=== PATIENT | female | born 2005 | race Caucasian/White ===

== ENCOUNTER 2025-04-06 15:59 | Outpatient (AMB) | payer BC, SELFPAY ==
[2025-04-06 16:05] VITALS: BP 112/76; PULSE 68; O2SAT 98; BMI 40.2
--- NOTE | 2025-04-06 16:05 | A.OFFVIS_ITS ---
Vital Signs 04/06/25 16:05 Height 5 ft 3 in Weight 227 lb 1.218 oz BMI 40.2 BP 112/76 Pulse 68 Pulse Source Pulse Oximeter Pulse Oximetry (%) 98 Oxygen Delivery Method Room Air Intake Visit Reasons: Weight gain Intake Note: New patient externally referred by PCP for Obesity. Excel Expert Required: No Accompanied by: Self / Same As Patient Allergies buspirone Allergy (Mild, Verified 04/06/25 16:07) Weakness Medication List - Last Reconciled 04/06/25 by Benyn Iglesias MD cetirizine 10 mg PO DAILY dextroamphetamine-amphetamine 10 mg PO dextroamphetamine-amphetamine 20 mg ER PO famotidine 20 mg PO DAILY norethindrone-e.estradiol-iron 1 mg-20 mcg (21)/75 mg (7) (06/15 (28)) tabs PO sertraline 50 mg PO DAILY HPI Comments Details: 19-year-old female sent to endocrinology for abnormal weight gain. Weight gain started 09/2023 til 07/2024 . Weight gain of 30-40 lb. wt is now stable Had extensive hormonal workup which included normal thyroid levels, slightly elevated testosterone, normal a.m. cortisol levels. Denies specific symptoms of Sruthi syndrome. No history of hypothyroidism.Some hair growth on face . Zoloft added 01/2025 . No dx of sleep apnea. LMP 1 mo ago. Menses nl on BCP The patient is a 19-year-old female presenting with unexplained weight gain. The weight gain began between September 2023 and July of the following year, totaling approximately 30 to 40 pounds without any changes in lifestyle or diet. Despite extensive workup, the cause remains unidentified, and the weight has stabilized but not decreased. The patient has a history of Polycystic Ovary Syndrome (PCOS), diagnosed at age 13-14, with symptoms including hair growth and stretch zhou. She is currently on control, which has not significantly impacted her symptoms. There is a family history of PCOS, and the patient has been on various medications, including Zoloft and Adderall, with no recent changes correlating with the weight gain. 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 She denies any diagnosis of sleep apnea following a 24-hour sleep study. The patient also has long COVID syndrome, contributing to short-term memory loss and fatigue. A family history of hypothyroidism is noted, although the patient's thyroid levels have been checked and are normal. The possibility of Sruthi's syndrome was considered due to symptoms and family history, but initial cortisol levels were normal. A 24-hour urine cortisol test is planned to further investigate this possibility. - Zoloft: No significant weight-related effects noted - Adderall: Used for idiopathic hypersomnia, initially improved fatigue - control: No significant impact on PCOS symptoms - [facility] Medical History Weight gain Surgical History Hx of wisdom tooth extraction Hx of arthroscopy of left knee History of tonsillectomy and adenoidectomy Family History Mother History of hysterectomy Family history of thyroid problem Tachycardia History of TIA (transient ischemic attack) IBS (irritable bowel syndrome) Pernicious anemia Depression Asthma Arthritis Fibromyalgia Father History of hypertension Hyperlipidemia Stroke Brain aneurysm Rheumatoid arthritis Social History Alcohol intake: current Alcohol intake frequency: holidays/special occasions only Patient Tobacco Use Status: Never used Tobacco Physical Exam Vital Signs: Last Vital Signs Pulse 68 04/06/25 16:05 BP 112/76 04/06/25 16:05 Pulse Ox 98 04/06/25 16:05 Oxygen Delivery Method Room Air 04/06/25 16:05 BMI result Body Mass Index 40.2 Const Other: Absence of cushingoid features. Thyroid gland is normal size weighs about 15 g. There are no thyroid nodules palpated Assessment & Plan Assessment & Plan (1) Weight gain: Code(s): R63.5 - Abnormal weight gain Category: Medical Plan: Is a 19-year-old white female sent to endocrinology for abnormal weight gain. Doubt endocrine etiology Plan is to check 24 hour urine for free cortisol and creatinine although t doubt [place] syndrome. We will also check test. Assuming above is normal, refer the patient to cooler room worker here. We also had extensive discussion regarding the use of G LP 1/GI P and decided to prescribe Mounjaro 2.5 mg Q weekly. Went over side effects of Mounjaro including but not limited to nausea, vomiting rare risk of pancreatitis. Patient was advised to keep her appointment with Gastroenterology During the consultation, I discussed the complexity of weight management, particularly in the context of PCOS and potential Sruthi's syndrome. We reviewed the role of the hypothalamus and hormones in weight regulation. I explained the potential use of GLP-1 medications for weight management, noting the challenges with insurance coverage. We also discussed the importance of ruling out Sruthi's syndrome with a 24-hour urine cortisol test. I advised the patient to consider a structured weight loss program and follow up with a cooler room worker. We also reviewed the potential impact of medications on weight and the importance of monitoring symptoms of idiopathic hypersomnia and long COVID syndrome. - Follow up with a cooler room worker for a structured weight loss program. - Complete the 24-hour urine cortisol test as instructed. - Monitor symptoms of fatigue and memory loss, and report any changes. - Consider discussing GLP-1 medications with your primary care provider for weight management. . Orders: Orders Cortisol, Free 24Hr Urine Today R63.5 - Abnormal weight gain Creatinine, 24 Hr Group Today R63.5 - Abnormal weight gain HCG Quantitative Today R63.5 - Abnormal weight gain Referrals Nutrition/Dietitian Referral R63.5 - Abnormal weight gain Nutrition/Dietitian Referral R63.5 - Abnormal weight gain Medications: New Zepbound (tirzepatide (weight loss)) for 4 weeks 2.5 mg (0.5 mL) subcut QWEEK 2 mL 4RF NS Coding Level of Care Code New Pt Level 4 (94121) Diagnoses Weight gain R63.5
--- OUTSIDE RECORDS SUMMARY | 2025-04-06 17:20 | XMS_ITS | Data Portability ---
Author Organization [facility] Address [address] [place] [phone] Care Team Providers Care Layer Out Plate Glass Name Role Phone JOAO, EKTA Referring Provider [phone] Assessment Encounter Date Assessment Date Assessment LastModified by Organization Details LastModified Time 02/11/2023 02/11/2023 Orthotic Goals: YesProvide Support YesReduce Pain YesImprove Stability optimize patellofemoral biomechanics. YesPositioning Other (please specify): The patient will be seen on an as needed basis. Orthosis: is in stock and delivered today. [email or web address] Not available 02/11/2023 17:19:42 Plan of Treatment Reminders Order Date Submit Date Provider Last Modified By Organization Details Last Modified Time Details Appointments None record ed. Lab None record ed. Referral None record ed. Procedures None record ed. Surgeries None record ed. Imaging None record ed. Medication Orders None record ed. Patient TargetsNo targets recorded. Patient Instructions Encounter Date Encounter Id Patient Instructions Last Modified By Organization Details Last Modified Time 02/11/2023 [id number] Patient was provided with oral and written instructions regarding proper donning, doffing, wear, care and maintenance. Patient did demonstrate that they were able to properly don and doff the orthosis. Patient was provided with my card and instructed to call if any questions or problems arise. [email or web address] Not available 02/11/2023 17:02:45 Reason for Referral None Reported. Procedures Surgical History Date Name Laterality Status Provider Name and Address Organization Details Recorded Time 3 OTS Procedures completed Alice Jefferson [place] [address], [place], [phone], [facility] 02/11/2023 17:18:39 Imaging Results None recorded. Procedure Notes None recorded. Medical Equipment None Reported. Vitals None Recorded Social History None recorded. Functional Status None recorded. Mental Status None recorded. Family History Nothing Reported. Medical History No medical history recorded. Gynecological HistoryNo gynecological history recorded. Obstetrics History GPAL:G 0 P 0 0 0 0 Past Encounters Encounter ID Performer Location Encounter Start Date Encounter Closed Date Diagnosis/Indication Diagnosis SNOMED-CT Code Diagnosis ICD10 Code Diagnosis IMO Codes Diagnosis Note [id number] ELODIA Lopez [place] [address] [place] [address] 02/11/2023 15:11:25 02/13/2023 10:21:34 Patellar instability [id number] M25.362 Health Concerns Section Related Observation LastModified by Organization Detai ls LastModified Time None Recorded Concern Status LastModified by Organization Details LastModified Time None Recorded Advance Directives Directive None Recorded Payers Insurance Date Sequence Insurance Name Policy Number Policy Morse Covered Member ID Morse Member ID Guarantor Name 02/13/2023 1 [facility] [id number] Neeta Roberts [id number] [facility] Notes Date Note Type Note Provider Name and Address Organization Details Recorded Time 02/11/2023 text/html Patient Accompan ied ByReported by PatientAccompanied by:For patient accompanied, patient reportsby father. OTS Generic HPIReported by Patientongoing left patella instability, but current brace while itis a pull on style, the crescent pad does not make contact, and the alignment on hinges is poor. Patient RTO for evaluation for left hinged PTO. She had an airmesh breg PTO, but the fit has not been sufficient. Patient states device is about one year old. Alice Jefferson [facility] [address], [place], [address], [facility] 02/11/2023 17:21:07 OBGyn Episode No OBEpisode recorded.
--- OUTSIDE RECORDS SUMMARY | 2025-04-06 17:20 | XMS_ITS | Encounter Summary ---
Author Organization [facility] Address [address] [place] [phone] Phone Care Team Providers Care Abstracter Name Role Phone Liz Menchaca MD Primary Care Provider + [phone] Reason for Visit * Reason Comments Med Refill Encounter Details Date Type Department Care Team ([facility] st Contact Info) Description 12/01/2021 Refill [facility] [place] [address] [place] [id number] Liz Menchaca MD [address] [place] [address] Menstrual cramps Social History Tobacco Use Types Packs/Day Years Used Date Smoking Tobacco: Never Smokeless Tobacco: Never Alcohol Use Standard Drinks/Week Comments Never 0 (1 standard drink = 0.6 oz pur e alcohol) Hunger/Food Answer Date Recorded In the last 12 months, did y ou or your family ever eat less than you felt you should because there wasn't enough money for food? No 11/06/2018 Stable Housing Answer Date Recorded Are you worried that in the next 2 months you may not have stable housing? No 11/06/2018 Transportation Concerns Answer Date Rec orded In the last 12 months, have you or your family ever had to go without healthcare because you didn't have a way to get there? No 11/06/2018 Hazards in Home Answer Date Recorded Think about the place you li ve. Do you have problems with any of the following? Pests (mice or roaches), mold, no/not working smoke detectors, water leaks, no window guards. No 2018 Financing Utilities Answer Date Recorde d In the last 12 months, has t he electric, gas, oil, or water company threatened to shut off your services in your home? No 11/06/2018 Safety at Home Answer Date Recorded Are you or your family worried about feeling saf e in your home? No 11/06/2018 Outside Support Answer Date Recorded Do you feel that you need mo re support from other people or programs to help you care for yourself or your family? No 11/06/2018 Understanding Health Concerns Answer Da te Recorded Do you need help understandi ng your or your child's healthcare needs (diagnosis, medications, plan, etc.)? No 11/06/2018 Financing Health Concerns Answer Date R ecorded In the last 12 months, was t here a time when your child needed to see a doctor or get medications or supplies but could not because of cost? No 11/06/2018 Missing School or Work Answer Date Dylan rded Did you or your child miss s chool or work because of a health problem that could have been avoided? No 11/06/2018 Comments Unknown Sex and Gender Information Value Date Recorded Sex Assigned at Not on file Legal Sex Female 6:39 PM EDT Gender Identity Female 06/08/2021 12:58 PM EST Sexual Orientation Not on file documented as of this encounter Miscellaneous Notes * Telephone Encounter - Sheela Hahn RN - 12/22/2021 10:59 AM EDT Spoke with Jackie to see if she was requesting the refill of Naproxen. It was prescribed 11/08/21- 60 tabs for menstrual cramps. She has only used 2-3 pills. She does not need the refill yet. Advised that she call us when she does need the refill. Denied refill to pharmacy at this time. documented in this encounter Plan of Treatment Not on file documented as of this encounter Visit Diagnoses Diagnosis Menstrual cramps Dysmenorrhea documented in this encounter Care Teams Abstracter Relationship Specialty Start Date End Date Liz Menchaca MD [address] [place] [address] PCP - General 10/02/17 11/04/23 documented as of this encounter
--- OUTSIDE RECORDS SUMMARY | 2025-04-06 17:20 | XMS_ITS | Clinical Summary ---
Author Organization [facility] Address [address] [place] [phone] Phone Care Team Providers Care Filter Washer And Presser Name Role Phone Liz Menchaca MD Primary Care Provider Allergies Active Allergy Reactions Criticality Noted Date Comments Beeswax Hives High 08/09/2018 Draper Hives 10/02/2022 House Dust Mite 10/02/2022 Grass Pollen 10/02/2022 Other Hives 08/09/2018 Head and shoulder shampoo Pollen Extracts 10/02/2022 Medications cetirizine (ZYRTEC) 10 MG tablet Take 1 tablet by mouth every morning. 3 Active norethindrone-e thinyl estradiol (JUNEL FE ,) 1 mg-20 mcg (21)/75 mg (7) per tablet 2 Active acetaminophen (TYLENOL) 650 mg/20.3 mL Soln Take 20.3 mL (650 mg total) by mouth every 6 (six) hours as needed (mild throat pain after surgery). Ask for over the counter liquid or may swallow tablets if tolerated 3 Active sodium chloride (OCEAN) 0.65 % nasal spray 3 sprays per nostril 3 times a day. May start on 10/10/2022. Any over the counter brand 15 mL 12 3 Active Active Problems Problem Noted Date Diagnosed Date Chronic adenotonsillitis 10/09/2022 PONV (postoperative nausea and vomiting) 023 Long COVID Immunizations Immunization Administration Dates Next Due MMR 01/21/2009,03/20/2005 Tdap 05/03/2015 Varicella 01/21/2008,12/13/2004 Family History Medical History Relation Comments Anesthesia problems Mother Trouble yolanda ng up Relation Status Comments Mother Social History Tobacco Use Types Packs/Day Years Used Date Smoking Tobacco: Never Smokeless Tobacco: Never Alcohol Use Standard Drinks/Week Comments Never 0 (1 standard drink = 0.6 oz pur e alcohol) Education Answer Date Recorded Are you interested in more education? Not on kenji e 09/22/2022 Are you concerned about learning? Not on file 09/22/2022 No 09/22/2022 No 09/22/2022 Digital Access Answer Date Recorded No 10/16/2022 No 10/16/2022 Reliable internet access at home? Not on file 10/16/2022 Device with a working camera? Not on file Comments Unknown Sex and Gender Information Value Date Recorded Sex Assigned at Not on file Legal Sex Female 3:00 PM EDT Gender Identity Not on file Sexual Orientation Not on file Last Filed Vital Signs Vital Sign Reading Time Taken Comments Blood Pressure 122/79 10/09/2022 3:51 PM EDT Pulse 71 10/09/2022 3:51 PM EDT Temperature 36.6 C (97.9 F) 10/09/2022 11:37 AM EDT Respiratory Rate 18 10/09/2022 3:51 PM EDT Oxygen Saturation 97% 10/09/2022 3:51 PM EDT Inhaled Oxygen Concentration - - Weight - - Height - - Body Mass Index - - Plan of Treatment Health Maintenance Due Date Last Done Comments COMBINED DTaP,Tdap,Td (2 - Td or Tdap) 05/31/2015 05/03/2015 DEPRESSION SCREENING 2015 SMOKING Hx and SMOKELESS TOBACCO SCREENING 11/17/2016 HPV VACCINES (1 - 3-dose series) 11/17/2018 ADOLESCENT UNIVERSAL LIPID SCREENING 11/17/2020 HEPATITIS C SCREENING 11/17/2021 HIV ONE-TIME SCREENING (18-65 YEARS) 11/17/2021 MENINGOCOCCAL VACCINES (B) (2 of 2 - Trumenba SCDM 2-dose series) 05/10/2022 11/08/2021 PAP SMEAR 11/17/2024 INFLUENZA VACCINE (#1) 2024 12/28/2021, 2019 COVID-19 VACCINE ( season) 2025 04/30/2022, 05/18/2021, 10/08/2020, Additional history exists Adult Td,Tdap Booster 05/03/2025 05/03/2015 MMR VACCINES Completed 01/21/2009, 03/20/2005 MENINGOCOCCAL VACCINES (ACWY) Completed 05/09/2020 HEPATITIS A VACCINES Aged Out No long er eligible based on patient's age to complete this topic HIB VACCINES Aged Out No longer eligi ble based on patient's age to complete this topic IPV VACCINES Aged Out No longer eligi ble based on patient's age to complete this topic PNEUMOCOCCAL VACCINES (0-49 years) Aged Out No longer eligible based on patient's age to complete this topic Medical Devices Not on file Insurance HMO POS HMO POS [facility] HMO POS [facility] HMO POS HMO POS HMO POS HMO [place] [address] [place] [address] HMO POS Care Teams Filter Washer And Presser Relationship Specialty Start Date End Date Liz Menchaca MD [address] [place] [address] PCP - General 03/14/22 Additional Source Comments The information contained in this document represents components of the legal health record. It is not the complete legal health record.[facility]
--- OUTSIDE RECORDS SUMMARY | 2025-04-06 17:20 | XMS_ITS | Clinical Summary ---
Author Organization [address] Address [address] [place] [phone] Care Team Providers Care Butt Presser Name Role Phone Liz Menchaca MD Primary Care Provider Allergies Active Allergy Reactions Criticality Noted Date Comments Beeswax Hives High 08/09/2018 Environmental Allergies Sneezing 08/09/2018 Seasonal Medications 06/15, , 1 mg-20 mcg (21)/75 mg (7) per tablet 02/08/2022 Active Active Problems No known active problems Social History Tobacco Use Types Packs/Day Years Used Date Smoking Tobacco: Never Alcohol Use Standard Drinks/Week Comments Never 0 (1 standard drink = 0.6 oz pur e alcohol) PHQ-2 Answer Date Recorded PHQ-2 Total Score 0 03/21/2022 Comments Unknown Sex and Gender Information Value Date Recorded Sex Assigned at Female 02/08/2022 2:58 PM EDT Legal Sex Female 6:21 AM EDT Gender Identity Not on file Sexual Orientation Straight 02/08/2022 2: 58 PM EDT Last Filed Vital Signs Vital Sign Reading Time Taken Comments Blood Pressure - - Pulse 77 03/21/2022 4:00 PM EDT Temperature 36.8 C (98.3 F) 03/21/2022 4:00 PM EDT Respiratory Rate - - Oxygen Saturation 97% 03/21/2022 4:00 PM EDT Inhaled Oxygen Concentration - - Weight 84.8 kg (187 lb) 03/21/2022 2:36 PM EDT Height 160 cm (5' 3 ) 03/21/2022 2:36 PM EDT Body Mass Index 33.13 03/21/2022 2:36 PM EDT Plan of Treatment Health Maintenance Due Date Last Done Comments DTaP/TDaP Vaccines (2 - Td or Tdap) 05/31/2015 05/03/2015 HIV screening 11/17/2016 Chlamydia screening 11/17/2020 Hepatitis C screening 11/17/2021 Meningococcal B Vaccine (2 of 2 - Trumenba SCDM 2-dose series) 05/10/2022 11/08/2021 Cervical cancer screening 11/17/2024 Influenza Vaccine Pediatric (#1) 2024 05/09/2020, 03/30/2009, 04/02/2008, Additional history exists Covid-19 vaccine series ( - 2024- season) 2025 Tetanus adult (Td q 10,TDAP once) 05/03/2025 05/03/2015 RSV Immunization (1 - 1-dose 75+ series) 11/17/2078 Hepatitis B vaccine series Completed 08/22, 2003, 2003 Pneumococcal Vaccine (2 - 49 years) Aged Out 12/13/2004, 05/22/2004, 03/21/2004, Additional history exists No longer eligible based on patient's age to complete this topic HIB Vaccines Completed 03/20/2005, 04/27, 03/21/2004, Additional history exists IPV Vaccines Completed 01/21/2008, 07/26, 03/21/2004, Additional history exists Varicella Vaccines Completed 01/21/2008, 12/13/2004 MMR Vaccines Completed 01/21/2009, 03/20/2005 Hepatitis A Vaccines Completed 04/15/2012, 02/04/20 HPV vaccine series Completed 02/14/2017, 06/13/2016 Meningococcal Vaccine Completed 05/09/2020, 015 Rotavirus Vaccines Aged Out No longer eligible based on patient's age to complete this topic Insurance BCBS [facility] Care Teams Butt Presser Relationship Specialty Start Date End Date Liz Menchaca MD [address] [facility] [place] [id number] PCP - General Pediatrics 02/12/22
--- OUTSIDE RECORDS SUMMARY | 2025-04-06 17:20 | XMS_ITS | Clinical Summary ---
Author Organization [facility] Address [address] [place] [phone] Phone Care Team Providers Care Behavioral Sciences Department Chair Name Role Phone Rc Camara DO Primary Care Provider [phone] Allergies No known active allergies Medications albuterol HFA (PROAIR HFA ; PROVENTIL HFA ; VENTOLIN HFA) 90 mcg/actuation inhaler Inhale 2 puffs by mouth every 6 (six) hours if needed for wheezing. Active amphetamine-dex troamphetamine XR (ADDERALL XR) 20 mg 24 hr capsule Take 1 capsule (20 mg total) by mouth 1 (one) time each day in the morning. Do not crush or chew. Active amphetamine-dex troamphetamine XR (ADDERALL XR) 10 mg 24 hr capsule Take 1 capsule (10 mg total) by mouth 1 (one) time each day in the morning. Do not crush or chew. Active cetirizine (ZyrTEC) 10 mg tablet Take 1 tablet (10 mg total) by mouth 1 (one) time each day. Active propranoloL (INDERAL) 40 mg tablet Take 1 tablet (40 mg total) by mouth 1 (one) time each day. Active hydrOXYzine HCL (ATARAX) 10 mg tablet Take 1 tablet (10 mg total) by mouth 1 (one) time. Active norethindrone-e thinyl estradiol (JUNEL FE 06/15) 1 mg-20 mcg (21)/75 mg (7) per tablet Take 1 tablet by mouth 1 (one) time each day. Active sertraline (ZOLOFT) 25 mg tablet Take 1 tablet (25 mg total) by mouth 1 (one) time each day. Active famotidine (PEPCID) 10 mg tablet Take by mouth. Active Active Problems Problem Noted Date Diagnosed Date Palpitation 08/03/2024 Assessment & Plan (08/03/2024 12:06 PM EDT): Palpitation, shortness of breath, and tachycardia occurred after multiple COVID infections and she was evaluated for possible prolonged COVID syndrome. All evaluation has been unremarkable. She also had many other somatic symptoms without clear objective evidence of abnormalities. Echocardiogram was essentially normal. Heart rate with 2 EKGs were normal. I will schedule 24-hour Holter monitor to assess heart rate variation and tilt table to see whether there is any positional change of the heart rate and blood pressures. At the meantime, I will check CRP, sed rate, and metanephrine level. Shortness of breath 08/03/2024 Assessment & Plan (08/03/2024 12:06 PM EDT): She was seen by pulmonary team who also into her hospital and appears further workup was unremarkable. She has no evidence of cardiac dysfunction. Suspect most of the symptoms are due to deconditioning. Encounters Date Type Department Care Team Description 01/08/2025 10:00 AM EDT Ancillary Procedure [facility] [address] [facility] [address] [place] [address] Palpitations from Last 3 Months Surgical History Surgery Date Site/Laterality Comments TONSILLECTOMY ADENOIDECTOMY Medical History Medical History Date Comments Asthma Migraines Fatigue Brain fog Anxiety Depression Allergic rhinitis Patellar instability PCOS (polycystic ovarian syndrome) Abnormal EKG Family History Medical History Relation Name Comments HISTORY OF STROKE Father HLD Father HTN Father HISTORY OF STROKES Mother Relation Name Status Comments Father Mother Social History Tobacco Use Types Packs/Day Years Used Date Smoking Tobacco: Never Smokeless Tobacco: Never Tobacco Cessation:Counseling Given: Not Answered Alcohol Use Standard Drinks/Week Comments Yes 0 (1 standard drink = 0.6 oz pur e alcohol) OCC Comments Unknown Sex and Gender Information Value Date Recorded Sex Assigned at Not on file Legal Sex Female 7:47 AM EST Gender Identity Not on file Sexual Orientation Not on file Obstetrics History Last Filed Vital Signs Vital Sign Reading Time Taken Comments Blood Pressure 124/80 01/08/2025 10:24 AM EDT Pulse 94 08/03/2024 10:25 AM EDT Temperature - - Respiratory Rate - - Oxygen Saturation 99% 08/03/2024 10:25 AM EDT Inhaled Oxygen Concentration - - Weight 101 kg (222 lb) 01/08/2025 10:24 AM EDT Height 160 cm (5' 3 ) 01/08/2025 10:24 AM EDT Body Mass Index 39.33 01/08/2025 10:24 AM EDT Plan of Treatment Health Maintenance Due Date Last Done Comments Gonorrhea/Chlamydia Screening 2003 Annual Well Child Visit (3-21 years old) 12/24/2023 11/09/2022, 11/08/2021, 11/10/2019, Additional history exists HIV Screening 12/24/2023 Hepatitis C Screening 12/24/2023 Social Influencers of Health Screening 12/24/2023 Depression Screening 05/27/2024 Cervical Cancer Screening: Pap Smear 11/17/2024 COVID-19 Vaccine ( season) 2025 01/06/2025, 10/26/2023, 04/30/2022, Additional history exists DTaP,Tdap,and Td Vaccines (7 - Td or Tdap) 05/03/2025 05/03/2015, 01/21/2009, 03/20/2005, Additional history exists Cholesterol Screening (Lipid Panel) 12/17/2029 12/17/2024 RSV Immunization Adult Patients (1 - 1-dose 75+ series) 11/17/2078 Pneumococcal Vaccine: Pediatrics (0 to 5 Years) and At-Risk Patients (6 to 49 Years) Completed 12/13/2004, 05/22/2004, 03/21/2004, Additional history exists HIB Vaccines Completed 03/20/2005, 04/27, 03/21/2004, Additional history exists IPV Vaccines Completed 01/21/2008, 07/26, 03/21/2004, Additional history exists Varicella Vaccines Completed 01/21/2008, 12/13/2004 MMR Vaccines Completed 01/21/2009, 03/20/2005 Hepatitis A Vaccines Completed 04/15/2012, 02/04/20 HPV Vaccines Completed 02/14/2017, 06/13/2016 Meningococcal ACWY Vaccine Completed 05/09/2020, Meningococcal B Vaccine Completed 11/09/2022, 11/08 Hepatitis B Vaccines Completed 03/13/2024, 09/12/2023, 08/12/2023, Additional history exists Influenza Vaccine Completed 01/06/2025, , 12/28/2021, Additional history exists RSV Immunization Patients Under 20 months Aged Out No longer eligible based on patient's age to complete this topic Procedures Procedure Name Priority Date/Time Associated Diagnosis Comments STRESS TEST ONLY EXERCISE Routine 01/08/2025 10:45 AM EDT Palpitations LIPID PANEL WITH REFLEX TO DIRECT LDL Routine 12/17/2024 11:59 AM EDT Routine general medical examination at a health care facility Anxiety PCOS (polycystic ovarian syndrome) from Last 3 Months or Most Recently Relevant to Health Maintenance Results * Exercise stress test (01/08/2025 10:45 AM EDT) Target HR 169 bpm CV STRESS ONLY Baseline HR 62 bpm CV STRES S ONLY Baseline SBP 126 mmHg CV STRE SS ONLY Baseline DBP 78 mmHg CV STRE SS ONLY O2 sat rest 99 % CV STRES S ONLY Peak HR 143 bpm CV STRESS ONLY Peak SBP 132 mmHg CV STRESS ONLY Peak DBP 80 mmHg CV STRESS ONLY Estimated workload 8.9 METS CV STRESS ONLY Rate Pressure Product 18,876.0 mmHg*bpm CV STRESS ONLY Percent HR 72 % CV STRESS ONLY Exercise/inject ion duration (min) 7 min CV STRESS ONLY Exercise/inject ion duration (sec) 2 sec CV STRESS ONLY Max HR Percent 71 % CV ST RESS ONLY ST Depression (mm) 0 mm CV STRESS ONLY Anatomical Region Laterality Modality Cardiac Diagnost ic Narrative 01/11/2025 1:54 PM EDT Stress ECG was non-diagnostic due to failure to achieve 85 percent of the maximum age-predicted heart rate. Exercise stress test was performed. The patient exercised for 7 minutes and 2 seconds to 8.9 MET workload achieving only 72% of max predicted heart rate. Exercise capacity was below average for age and gender. Blunted blood pressure response. There were no ischemic ECG changes or arrhythmias at this submaximal level of stress. Patient stopped due to symptoms of dizziness and shortness of breath Nondiagnostic exercise stress test due to inability to achieve diagnostic heart rate. Stress Findings A Dylan protocol stress test was performed. Overall, the patient's exercise capacity was below average. Total stress time was 7 min and 2 sec. The test was stopped because the patient experienced dizziness and shortness of breath. The patient's hemodynamic response was inadequate for diagnosis. Blood pressure demonstrated a blunted response. Heart rate demonstrated a normal response. The patient reported dizziness and shortness of breath during the stress test which resolved in early recovery. ECG 19-year-old female with palpitations and shortness of breath with exertion; rule out ischemia. Cardiac risk factors include obesity. No known cardiac events. Last dose of propranolol was the day of the test at 0815. Baseline ECG shows sinus rhythm with a short MN interval. There were no arrhythmias during stress. There is no ST segment changes during stress. There were no arrhythmias during recovery. The result of the stress ECG was non-diagnostic for ischemia due to failure to achieve 85 percent of the maximum age-predicted heart rate in the setting of beta blockade use and decreased exercise capacity. Procedure Note Ira Gan NP / Geovanna Ambriz MD - 01/11/2025 Stress ECG was non-diagnostic due to failure to achieve 85 percent ofthe maximum age-predicted heart rate. Exercise stress test was performed. The patient exercised for 7minutes and 2 seconds to 8.9 MET workload achieving only 72% of maxpredicted heart rate. Exercise capacity was below average for age andgender. Blunted blood pressure response. There were no ischemic ECG changes or arrhythmias at this submaximallevel of stress. Patient stopped due to symptoms of dizziness andshortness of breath Nondiagnostic exercise stress test due to inability to achieve diagnosticheart rate. us Rc Camara DO CV STRESS PROCEDURES Final Re sult * Lipid panel with reflex to direct LDL (12/17/2024 11:59 AM EDT) Cholesterol 127 0 - 200 mg/dL LAB CHEMISTRY METHOD 12/17/2024 5:16 PM EDT [facility] Triglycerides 77 0 - 150 mg/dL LAB CHEMISTRY METHOD 12/17/2024 5:16 PM EDT [facility] HDL 54 >=40 mg/dL LAB CHEMISTRY METHOD 12/17/2024 5:16 PM EDT [facility] LDL Calculated 58 0 - 100 mg/dL LAB CHEMISTRY METHOD 12/17/2024 5:16 PM EDT [facility] VLDL Cholesterol Akbar 15.4 mg/dL LAB CHEMISTRY METHOD 12/17/2024 5:16 PM EDT [facility] Non HDL Chol. (LDL+VLDL) 73 <145 mg/dL LAB CHEMISTRY METHOD 12/17/2024 5:16 PM EDT [facility] Chol/HDL Ratio 2.4 0.0 - 4.4 LAB CHEMISTRY METHOD 12/17/2024 5:16 PM EDT [facility] Blood Venous blood specimen / Unknown Venipuncture / Unknown 12/17/2024 11:59 AM EDT 12/17/2024 11:59 AM EDT [facility] BLOOD ORDERABLES Final Resul t [facility] [address] [place] [address], [place] [phone] from Last 3 Months or Most Recently Relevant to Health Maintenance Insurance [facility] Care Teams Behavioral Sciences Department Chair Relationship Specialty Start Date End Date Rc Camara DO [address] [place] [phone] PCP - General 10/16/23
--- OUTSIDE RECORDS SUMMARY | 2025-04-06 17:20 | XMS_ITS | Encounter Summary ---
Author Organization [facility] Address [address] [place] [phone] Phone Care Team Providers Care Train Operator Name Role Phone Liz Menchaca MD Primary Care Provider [phone] Encounter Details Date Type Department Care Team (Late st Contact Info) Description 11/17/2010 Conversion Encounter [facility] [place] [address] [place] [phone] Social History Tobacco Use Types Packs/Day Years Used Date Smoking Tobacco: Never Assessed Comments Unknown Sex and Gender Information Value Date Recorded Sex Assigned at Not on file Legal Sex Female 6:39 PM EDT Gender Identity Female 06/08/2021 12:58 PM EST Sexual Orientation Not on file documented as of this encounter Plan of Treatment Not on file documented as of this encounter Visit Diagnoses Not on filedocumented in this encounter Care Teams Train Operator Relationship Specialty Start Date End Date Liz Menchaca MD [address] [place] [address] PCP - General 10/02/17 11/04/23 documented as of this encounter
--- OUTSIDE RECORDS SUMMARY | 2025-04-06 17:20 | XMS_ITS | Encounter Summary ---
Author Organization [facility] Address [address] [place] [phone] Phone Care Team Providers Care Data Recovery Planner Name Role Phone Liz Menchaca MD Primary Care Provider Encounter Details Date Type Department Care Team (Late st Contact Info) Description 10/09/2022 Procedure Pass [facility]IOPER[facility]PT [address] [place] [address] Social History Tobacco Use Types Packs/Day Years Used Date Smoking Tobacco: Never Smokeless Tobacco: Never Alcohol Use Standard Drinks/Week Comments Never 0 (1 standard drink = 0.6 oz pur e alcohol) Education Answer Date Recorded Are you interested in more education? Not on kenji e 09/22/2022 Are you concerned about learning? Not on file 09/22/2022 No 09/22/2022 No 09/22/2022 Comments Unknown Sex and Gender Information Value Date Recorded Sex Assigned at Not on file Legal Sex Female 3:00 PM EDT Gender Identity Not on file Sexual Orientation Not on file documented as of this encounter Plan of Treatment Not on file documented as of this encounter Visit Diagnoses Not on filedocumented in this encounter Care Teams Data Recovery Planner Relationship Specialty Start Date End Date Liz Menchaca MD [address] [place] [phone] PCP - General 03/14/22 documented as of this encounter Additional Source Comments The information contained in this document represents components of the legal health record. It is not the complete legal health record.[facility]
--- OUTSIDE RECORDS SUMMARY | 2025-04-06 17:20 | XMS_ITS | Clinical Summary ---
Author Organization [facility] Address [address] [place] [id number] Phone Care Team Providers Care Lead Painter Name Role Phone Unavailable Primary Care Provider Unavailabl e Allergies Active Allergy Reactions Criticality Noted Date Comments Beeswax Hives High 08/09/2018 Riviera Hives 10/02/2022 Environmental 08/09/2018 Seasonal Pollen Extract 01/09/2022 Pyrithione 01/09/2022 Medications 06/15 1-20 MG-MCG per tablet Take 1 tablet by mouth once daily. 2 Active naproxen 500 MG tabletIndication s:Menstrual cramps Take 1 tablet (500 mg total) by mouth in the morning and 1 tablet (500 mg total) in the evening. As needed for period cramps.. 60 tablet 2 Active Additional Information Patient not taking.Reported on 02/27/2023 azelastine 0.1 % nasal spray Administer 2 sprays into affected nostril(s) 2 (two) times a day. 2 Active sodium chloride 0.65 % nasal spray 3 sprays per nostril 3 times a day. May start on 10/10/2022. Any over the counter brand 3 Active AMITRIPTYLINE HCL PO Take 10 mg by mouth every evening. Active amphetamine-dext roamphetamine XR 20 MG 24 hr capsule Take 20 mg by mouth every morning. Active dexamethasone 4 MG tabletIndication s:Moderate persistent reactive airway disease with wheezing with acute exacerbation Take 3 tablets with dinner on 03/02/23 3 tablet 1 3 Active montelukast 10 MG tabletIndication s:Moderate persistent reactive airway disease with wheezing with acute exacerbation TAKE 1 TABLET BY MOUTH EVERY DAY AT NIGHT 90 tablet 1 3 Active Active Problems Problem Noted Date Diagnosed Date Hypersomnia 09/12/2023 Overview (09/12/2023): Diagnosed following both COVID then [place] infections. Followed by both Neuro and Sleep Medicine, both at [facility]. Both involved in care. Followed by Neurologist since 08/21/2022, last seen 04/23/2023. Followed by Sleep Medicine for hypersomnia, last seen 07/02/2023 S/P T&A and turbinate surgery. PSG with [facility] 10/2022 did not meet criteria for narcolepsy or idiopathic hypersomnia. Medication: Adderall XR 20mg 12/2022 Adderall XR 20mg QAM, IR Adderall 5mg pm 03/2023 Adderall XR 30mg QAM, IR Adderall 5mg pm (given as late as 4pm) 05/2023. Reactive airway disease with wheezing 02/27/2023 Assessment & Plan (02/27/2023 6:07 PM EDT): Patient Instructions PERSISTENT COUGH AFTER COVID INFECTION with good response to Albuterol nebulizer in the office. Dexamethasone 12 mg today and again in 3 days with food. RX sent in Albuterol 4-6 puffs w spacer every 4-6 hours for the next few days and wean off as cough resolves in the next 4-6 days. Has Albuterol and spacer at home. Start Singulair -RX sent in--and continue for 3 weeks after the cough resolves. If cough returns after stopping Singulair needs recheck If not improving or worsening TBS back in the office. Dysmenorrhea 11/12/2022 Overview (11/12/2022): Naprosyn helps. Followed by OFFICE MACHINE TECHNICIAN regularly, last seen 06/2022. Assessment & Plan (11/12/2022 11:57 AM EDT): Naprosyn helps. Followed by OFFICE MACHINE TECHNICIAN regularly, last seen 06/2022. Post-acute sequelae of COVID-19 ([facility]) 3 Overview (09/12/2023): Seen by H ID on 04/17/2022 and 08/13/2022 for Post Acute Sequelae of SARS-CoV2 infection ([facility]). COVID infection was 09/2021. Recommendations: Neuroimmunology, neurology, pulmonary, sleep medicine, OT and PT referrals. Already seeing ENT. Healthy Lifestyle habits were disussed. Seen by Train Control Electronic Technician on 07/06/2022: normal PFT's, exhaled nitric oxide, CXR reportedly normal. Recommended Repeat allergy testing with small machine bindery operator. Continue Flonase, start Cetirizine and nasal saline. Albuterol prn-unhelpful per patient. Consider a controller medication. Followed by Neurologist since 08/21/2022, last seen 04/23/2023. For headaches: [id number] QHS: no effect. Increased to 20mg. Abortive treatment with ibuprofen 200-400mg or tylenol 500-1000 mg. Limit to 2 doses of abortive treatment per week. Sumatriptan 20mg IN prn, repeat in 2 hours if no effect. Fo fatigue/hypersomnia. Adderall XR 20mg-effective but with rebound fatigue in the afternoon so 5mg added in the afternoon S/P PT, discontinued by patient when she stopped seeing improvement. Cognitive rehab-helped, stopped because she was doing well in school. CBT-helping. Followed by Sleep Medicine for hypersomnia, last seen 07/02/2023: S/P T&A and turbinate surgery. PSG with [facility] 10/2022 did not meet criteria for narcolepsy or idiopathic hypersomnia. At last visit, Adderall XR increased from 20mg to 30mg in the morning. IR Adderall maintained at 5mg in the pm, but can be taken later in the day, no later than 4pm. Assessment & Plan (11/12/2022 11:33 AM EDT): S/P evaluation by Michael MAYORGA. Seen by Neurologist: managing headaches with Migrelief (but only just started it), will f/u. Seen by Train Control Electronic Technician: CXR/PFT's all normal. Albuterol not helpful. Will f/u. Seen by ENT: had adenotonsillectomy and turbinate reduction about a month ago. Unclear if it is helping yet. S/P PT- stopped because she didn't have time. Seen by Sleep Medicine: had a sleep study but hasn't gotten results yet. Getting speech therapy/cognitive therapy. Seeing a counselor every 2 weeks. Allergy workup recommended but not done. Migraine without aura and wi thout status migrainosus, not intractable 04/10/2022 Overview (06/02/2023): Rizatriptan PRN started Mar 2022 Followed by Neurologist since 08/21/2022 for Long Covid. Last seen 04/2023. Current treatments: Migrelief Headache hygiene CBT-ongoing Limited ibuprofen/Tylenol Sumatriptan 20mg IN prn, may repeat in 2 hours if no effect Amitriptyline 10mg- no effect, increased to 20mg QHS. Past treatments: PT-unhelpful T&A after PSG showed JOHN Stimulant use for fatigue/hypersomnia Assessment & Plan (11/12/2022 11:39 AM EDT): Followed by [facility] Neurologist, last seen 07/2022. Has f/u planned. Migrelief started 10/2022. Rizatriptan prescribed 03/2022. PCOS (polycystic ovarian syndrome) 09/03/2021 Overview (11/09/2021): Seen by OFFICE MACHINE TECHNICIAN on 07/28/2021 for probably PCOS. Loestrin 06/15 FE started. Assessment & Plan (11/12/2022 11:33 AM EDT): Takes combine OCP continuously for 3 months at a time. Followed regularly by OFFICE MACHINE TECHNICIAN. Assessment & Plan (11/09/2021 10:17 AM EDT): Continue OCP. F/U with OFFICE MACHINE TECHNICIAN. Surveillance for control, oral contracepti ves 08/05/2021 Overview (11/12/2022): Combined OCP prescribed by Ride Assembly Supervisor on 07/28/2021 due to menorrhagia and severe iron deficiency anemia. Family history includes mother being on a blood thinner . She says she was evaluated and not found to have any underlying medical conditions. She says she takes aspirin. This was discussed with the senior net software developer, who did not think any further workup needed to be done. She had a PTT which was shortened (done due to concern for bleeding disorder because of the menorrhagia). Due to a concern for a possible relationship to hypercoagulability, this was also discussed with the senior net software developer, who thought it was likely due to the significant anemia at the time. He will repeat it. Overall, senior net software developer had no concerns for her receiving an estrogen containing OCP at this time. At well visit 11/09/2022, patient states she is taking her OCP continuously for 3 months for 4 periods per year. This is greatly assisting her menorrhagia. Sees OFFICE MACHINE TECHNICIAN regularly, last seen 06/2022. Assessment & Plan (11/12/2022 11:26 AM EDT): Patient states she is taking her OCP continuously for 3 months for 4 periods per year. This is greatly assisting her menorrhagia. Sees OFFICE MACHINE TECHNICIAN regularly. Assessment & Plan (11/09/2021 10:17 AM EDT): Sees OFFICE MACHINE TECHNICIAN, on OCP continuously X 3 months for 4 periods per year. Menorrhagia improved. Anemia thus improved. Now complaining of menstrual cramps. Naproxen started. Iron deficiency anemia due to chronic blood loss 07/27/2021 Overview (05/03/2023): Mild anemia noted in 2017 and MV with iron recommended. Ferrous sulfate ordered 10/2018. CBC and iron studies normal 05/2019. Diagnosed with more severe anemia 07/2021, HGB= 7.7, low Ferritin. Due to menorrhagia. Iron 325 BID started. Seen in ED due to increased symptoms but transfusion not needed. PT/PTT/VW studies/FSH/LH/Testosterone/DHEAS results-no significant abnormalities. Pelvic U/S c/w PCOs. Seen by OFFICE MACHINE TECHNICIAN on 07/28/2021 for probably PCOS. Loestrin 1/20 FE started. Improvement in menorrhagia was noted. Seen by Supervisor Airplane Flight Attendant on 07/31/2021. IV iron therapy initiated due to intolerance of oral iron therapy. 6 infusions planned. Seen by [facility] on 09/22/2021. Received 6th and final IV iron sucrose infusion. Moving forward, she needs to increase iron dami foods in diet and can supplement with a MV with iron. HGB 10.6. Ongoing control of menstrual losses will be critical. Losses have decreased with initiation of hormonal control. HGB 12.0 on 10/08/2022. 04/2023: HGB and ferritin are completely normal off all iron supplements. Has some iron sources in the diet. Heavy menstrual bleeding has resolved. Will continue to monitor at intervals to ensure she does not become anemic again. Assessment & Plan (11/12/2022 11:44 AM EDT): S/P Hematology consultation- discharged. S/P IV iron therapy. Good control of menstrual losses with OCP taken continuously 3 months at a time. Recheck CBC and iron studies as last HGB was 12. Assessment & Plan (11/09/2021 10:14 AM EDT): HGB 7.7 on 07/28/2021. Due to significant menstrual losses, now being addressed with continuous OCP use, prescribed by OFFICE MACHINE TECHNICIAN. Did not tolerate oral iron supplementation. S/P Iron infusions and Hematology consultation. Discharged from Supervisor Airplane Flight Attendant on 09/22/2021. HGB 15.3 today. Currently taking a MV with iron. Will recheck in 3 months. Menorrhagia with irregular cycle 07/26/2021 Overview (11/12/2022): Seen by OFFICE MACHINE TECHNICIAN since 07/28/2021 for probable PCOS. Loestrin 1/20 FE started, taken continuously. Followed regularly, last seen 06/2022. Assessment & Plan (11/12/2022 11:53 AM EDT): Takes OCP continuously for 3 months at a time and this is effective. Seen by OFFICE MACHINE TECHNICIAN regularly, last seen 06/2022. 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 F/U as needed Seen by Sports Medicine at [facility] on 05/14/2022 for left patella instability with multiple subluxations/dislocations. Plan is for MRI to assess for articular artilage damage or internal derrangement. Seen by Sports Medicine at [facility] on 06/13/2022 for f/u of left knee instability. MRI shows lateral posturing of patella but no cartilage injury. MPFL reconstruction was recommended if surgery was desired. For now, continue PT and brace. F/U in 8 weeks. 05/10/2023: MPFL reconstruction was performed. Seen for post op check 05/22/2023: doing well, advance as per protocol. Assessment & Plan (11/12/2022 11:56 AM EDT): Followed by [facility] Sports Medicine. Surgery planned in the future. Assessment & Plan (07/14/2021 11:57 AM EST): Acute on chronic. S/p PT - did not help, now with acutely worse pain. Will get MRI. Will likely refer to Ortho, but will wait on MRI. For now, aleve BID x 1 week, then QD x 1 week to help with inflammation. Patellofemoral disorder of left knee 06/18/2021 Overview (09/12/2023): Followed by [facility] Sports Medicine. 05/10/2023: open MPFL reconstruction was done. Participates in PT. Last seen 08/12/2023: 3 month f/u after left knee arthroscopsy/open MPFL reconstruction for chronic patellar instability. Patellofemoral pain with walking down stairs can be normal at this stage. Plan: Continue PT until discharged by their team. F.U in 3 months. Fibromyalgia 02/09/2018 Overview (12/09/2018): Followed by Sumit Jackspooler , s/p Ortho (referred to PT). Last seen 09/03/2018. ESR elevated in past, repeat normalized 09/2017. Diagnosis of Fibromyalgia 12/27/2017. Spondyloarthrositis diagnosed 05/2018 but HLA B27 negative. Treated with Mobic 15mg QD, no improvement. Cyclobenzaprine not helpful for sleep. Xray of hips normal. MRI of sacroiliac joint normal 05/2018. [facility]. Seen again by Dr Eugene 09/03/2018 and diagnosis was disorder of pain processing. PT not particularly helpful. Consider amitriptyline or gabapentin. Recheck in 3 months. Assessment & Plan (11/10/2019 5:22 PM EDT): No current issues, taking no meds. Assessment & Plan (11/04/2018 5:32 PM EDT): Discharged by Jackspooler. Weight loss would help and this is discussed. Pain management clinic in the future if needed. Low back pain 07/31/2017 Overview (11/04/2018): Followed by Sumit Jackspooler , s/p Ortho (referred to PT). Last seen 05/2018. ESR elevated in past, repeat normalized 09/2017. Diagnosis of Fibromyalgia 12/27/2017. Spondyloarthrositis diagnosed 05/2018 but HLA B27 negative. Treated with Mobic 15mg QD, no improvement. Cyclobenzaprine not helpful for sleep. Xray of hips normal. MRI of sacroiliac joint normal 05/2018. Referred to [facility]. Assessment & Plan (11/10/2019 5:23 PM EDT): Currently no symptoms. Assessment & Plan (11/04/2018 5:31 PM EDT): Discharged by Jackspooler. Weight loss would help and this is discussed. Pain management clinic in the future if needed. Pain in thoracic spine 06/25/2017 Overview (11/09/2021): Followed by Augusto Jackspooler , s/p Ortho (referred to PT). Last seen 05/2018. ESR elevated in past, repeat normalized 09/2017. Diagnosis of Fibromyalgia 12/27/2017. Spondyloarthrositis diagnosed 05/2018 but HLA B27 negative. Treated with Mobic 15mg QD, no improvement. Cyclobenzaprine not helpful for sleep. Xray of hips normal. MRI of sacroiliac joint normal 05/2018. Referred to [facility]. Well visit 11/07/2021: No current therapy, still has intermittent pain. Assessment & Plan (11/09/2021 10:04 AM EDT): S/P Rheum and Ortho consultation. No current therapy. Still has intermittent pain but it is not too bothersome. Assessment & Plan (11/10/2019 5:23 PM EDT): Currently no symptoms. Assessment & Plan (11/04/2018 5:31 PM EDT): Discharged by Jackspooler. Weight loss would help and this is discussed. Pain management clinic in the future if needed. Acne vulgaris 06/25/2017 Overview (11/04/2018): Seen by [facility] 11/15/2017 Dx: Acne Recommendations: Finacea foam and clinda gel in am; alternate Tretinoin 0.025% crea and adapalene in am. F/U 2-3 mo At [facility] visit noted to be off these meds and on an online OTC cream (Dr Radhika Mccain). Assessment & Plan (11/09/2021 10:03 AM EDT): Using OTC treatments only and acne is well controlled. Assessment & Plan (11/10/2019 5:21 PM EDT): Using OTC products with success. Assessment & Plan (11/04/2018 5:30 PM EDT): Continue OTC creams as they are working well. She doesn't plan on going back to the product safety tester. Allergic rhinitis due to pollen 06/25/2017 Overview (11/12/2022): On Flonase, Zyrtec as needed. Allergy testing has been recommended in the past but not done. Assessment & Plan (11/12/2022 11:54 AM EDT): History of recurrent and frequent sinusitis fall 2021-spring 2022. Had adenotonsillectomy 09/2022 with turbinater reduction. Continue flonase and zyrtec and consider allergy referral if surgery does not improve the recurrent rhinosinusitis. Assessment & Plan (11/09/2021 10:04 AM EDT): Continue Zyrtec and Flonase as needed. Assessment & Plan (11/10/2019 5:21 PM EDT): Continue Zyrtec and Flonase as needed. Assessment & Plan (11/04/2018 5:31 PM EDT): Continue Flonase, use Zyrtec, Mucinex as needed. Obesity 06/13/2016 Overview (11/12/2022): Labs done ALT last done 06/2022 and normal HgbA1C last done 03/2022 and normal. Glucose last done 06/2022 and normal. Lipid panel last done 05/2022 and normal. Repeat ordered 11/09/2022. Assessment & Plan (11/12/2022 11:38 AM EDT): Repeat labs ordered. HGBA1C, Lipid panel, Glucose, ALT normal in the past. Assessment & Plan (11/10/2019 5:23 PM EDT): Continue diet changes resulting in weight loss. Increase exercise. Check labs. Assessment & Plan (11/04/2018 5:32 PM EDT): Discussed diet and exercise, seen by screw down in past and does not want to return. Check labs. Resolved Problems Problem Noted Date Diagnosed Date Resolved Date History of COVID-19 02/12/2023 02/12/2023 06/02/19 24 Overview (02/12/2023): Positive HOME COVID test 02/12/23 Adenotonsillar hypertrophy 07/03/2022 0 11/12/2022 Overview (11/12/2022): Followed by ENT since 06/21/2022 . Adenotonsillectomy done 10/09/2022. Assessment & Plan (07/15/2022 11:28 AM EST): Sees ENT and will be getting adenoids and tonsils out along with a turbinate reduction. RUQ abdominal pain 06/07/2022 3 Assessment & Plan (06/07/2022 5:50 PM EST): Check labs Vomiting a few days--viral, other? Not toxic and not dehydrated Scleral icterus May need Ultrasound to assess biliary tree Scleral icterus 06/07/2022 11/12/2022 Other infectious mononucleos is without complication 03/25/2022 11/12/2022 Assessment & Plan (03/25/2022 6:07 AM EDT): Exam and clinical symptoms are consistent with [place] infection possibly triggering her migraines. Will prescribe prednisone x 5 days along with Zofran for the nausea. Clear return precautions were discussed. Migraines seem to be controlled with Motrin/Tylenol and Excedrin if needed. Cyst of left ovary 09/16/2021 3 Overview (11/12/2022): Seen in the ED on 09/15/2021 for right sided flank pain. CT scan showed mildly enlarged and edematous appearing left ovary with small volume free fluid in the pelvis. Findings may reflect a ruptured ovarian cyst or ovarian torsion in the appropriate clinical setting. U/S recommended. ED diagnosis was ruptured ovarian cyst. Discharged on ibuprofen and acetaminophen/oxycodone. Advised to call Dr Mitchell for f/u. Seen by Dr Mitchell 09/18/2021: Concern for torsion so sent to [facility]. U/S showed a 4cm oval abnormality c/w hemorrhagic cyst, normal doppler flow. Suggested repeat imaging in 2-3 months. F/U U/S 10/2021: normal ovaries. Has regular f/u with OFFICE MACHINE TECHNICIAN. Assessment & Plan (11/09/2021 10:20 AM EDT): Seen in ED 08/2021. CT showed likely ruptured ovarian cyst. U/S then showed 4cm oval abnormality c/w hemorrhagic cyst. Repeat U/S planned this week. Continue OCP as prescribed by OFFICE MACHINE TECHNICIAN, continuous X 3 months. Other specified abnormal fin dings of blood chemistry 07/31/2017 12/09/2017 Overview (11/28/2017): Elevated ESR (790.6) Onset: 07/31/2017 Added by: Liz Menchaca Pure hypertriglyceridemia 01/14/2015 Overview (11/04/2018): Normal lipid profile 2018. Immunizations Immunization Administration Dates Next Due DTaP 5 01/21/2009, 5,05/22/2004,03/21,01/21/2004 H1N1 03/30/2009 HPV Vaccine 9 Valent 02/14/2017,06/13/2016 Hep A, ped/adol 04/15/2012,02/03/2010 Hep B, ped/adol 08/22/2004,2003,2003 Hib (PRP-T) 03/20/2005, 4,03/21/2004,01/20 IPV 01/21/2008, 5,03/21/2004,01/20 Influenza, injectable, quadr ivalent, preservative free 05/09/2020 Influenza, injectable, triva lent, preservative free 04/02/2008,03/18/2007,03/21/2006,04/25,03/20/2005 MMR 01/21/2009,03/20/2005 Meningococcal B Trumenba 11/09/2022,11/08/2021 Meningococcal Conj (Menactra) MCV4P 05/09/2020,1 07/04/2014 Pneumococcal Conjugate 12/13/2004,2003,03/21/2004,01/20 Tdap 05/03/2015 Varicella 01/21/2008,12/13/2004 Family History Medical History Relation Name Comments Allergic rhinitis Father Hyperlipidemia Father Hypertension Father Obesity Father Anxiety disorder Mother Depression Mother Heart disease (Premature) Mother Hyperlipidemia Mother Hypertension Mother Obesity Mother Thyroid disease Mother Anxiety disorder Sister Eczema Sister Relation Name Status Comments Father Mother Sister Social History Tobacco Use Types Packs/Day Years Used Date Smoking Tobacco: Never Smokeless Tobacco: Never Alcohol Use Standard Drinks/Week Comments Never 0 (1 standard drink = 0.6 oz pur e alcohol) Hunger/Food Answer Date Recorded In the last 12 months, did y ou or your family ever eat less than you felt you should because there wasn't enough money for food? No 11/09/2022 Stable Housing Answer Date Recorded Are you worried that in the next 2 months you may not have stable housing? No 11/09/2022 Transportation Concerns Answer Date Rec orded In the last 12 months, have you or your family ever had to go without healthcare because you didn't have a way to get there? No 11/09/2022 Hazards in Home Answer Date Recorded Think about the place you li ve. Do you have problems with any of the following? Pests (mice or roaches), mold, no/not working smoke detectors, water leaks, no window guards. No 2022 Financing Utilities Answer Date Recorde d In the last 12 months, has t he electric, gas, oil, or water company threatened to shut off your services in your home? No 11/09/2022 Safety at Home Answer Date Recorded Are you or your family worried about feeling saf e in your home? No 11/09/2022 Outside Support Answer Date Recorded Do you feel that you need mo re support from other people or programs to help you care for yourself or your family? No 11/09/2022 Understanding Health Concerns Answer Da te Recorded Do you need help understandi ng your or your child's healthcare needs (diagnosis, medications, plan, etc.)? No 11/09/2022 Financing Health Concerns Answer Date R ecorded In the last 12 months, was t here a time when your child needed to see a doctor or get medications or supplies but could not because of cost? No 11/09/2022 Missing School or Work Answer Date Dylan rded Did you or your child miss s chool or work because of a health problem that could have been avoided? No 11/09/2022 Comments No Sex and Gender Information Value Date Recorded Sex Assigned at Not on file Legal Sex Female 6:39 PM EDT Gender Identity Female 06/08/2021 12:58 PM EST Sexual Orientation Not on file Last Filed Vital Signs Vital Sign Reading Time Taken Comments Blood Pressure 122/80 02/27/2023 5:14 PM EDT Pulse 82 02/27/2023 5:14 PM EDT Temperature 36.7 C (98.1 F) 02/27/2023 5:14 PM EDT Respiratory Rate 20 02/27/2023 5:14 PM EDT Oxygen Saturation 99% 02/27/2023 5:14 PM EDT Inhaled Oxygen Concentration - - Weight 89.4 kg (197 lb) 02/27/2023 5:14 PM EDT Height 159 cm (5' 2.6 ) 02/27/2023 5:14 PM EDT Body Mass Index 35.35 02/27/2023 5:14 PM EDT Plan of Treatment Health Maintenance Due Date Last Done Comments Influenza Vaccines (#1) 2024 12/29/19, 05/09/2020, 04/02/2008, Additional history exists COVID-19 Vaccine (6 - 2024-2 6 season) 2025 10/26/2023, 04/30/2022, 05/18/2021, Additional history exists DTaP,Tdap,and Td Vaccines (7 - Td or Tdap) 05/03/2025 05/03/2015, 01/21/2009, 03/20/2005, Additional history exists Pneumococcal Vaccine Completed 12/13/2004, 05/22/2004, 03/21/2004, Additional history exists HIB Vaccines Completed 03/20/2005, 04/27, 03/21/2004, Additional history exists IPV Vaccines Completed 01/21/2008, 07/26, 03/21/2004, Additional history exists Varicella Vaccines Completed 01/21/2008, 12/13/2004 MMR Vaccines Completed 01/21/2009, 03/20/2005 Hepatitis A Vaccines Completed 04/15/2012, 02/04/20 10 HPV Vaccines Completed 02/14/2017, 06/13/2016 Meningococcal Vaccine Completed 05/09/2020, 015 Men B Vaccine Completed 11/09/2022, 11/08/2021 Hepatitis B Vaccines Completed 09/12/2023, 08/12/2023, 08/22/2004, Additional history exists Procedures * Due to [place] [employer] law, this organization might not be sharing sensitive test results. Procedure Name Priority Date/Time Associated Diagnosis Comments CHLAMYDIA AND GONORRHEA, AMPLIFIED Routine 11/09/2022 11:51 AM EDT Routine screening for STI (sexually transmitted infection) from Last 3 Months or Most Recently Relevant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
--- OUTSIDE RECORDS SUMMARY | 2025-04-06 17:20 | XMS_ITS | Encounter Summary ---
Author Organization [facility] Address [address] [place] [address] Phone Care Team Providers Care Stadium Attendant Name Role Phone Liz Menchaca MD Primary Care Provider [phone] Reason for Visit * Reason Comments Med Refill Encounter Details Date Type Department Care Team ([facility] st Contact Info) Description 09/12/2019 Refill Pediatric And Adolescent Medicine - [address] [place] [address] Liz Menchaca MD [address] [place] [address] [id number] Iron deficiency anemia, unspecified iron deficiency anemia type Social History Tobacco Use Types Packs/Day Years [...] as of this encounter Visit Diagnoses Diagnosis Iron deficiency anemia, unspecified iron deficiency anemia type documented in this encounter Care Teams Stadium Attendant Relationship Specialty [place] [address] [place] [address] [place] [address] PCP - General 10/02/17 11/04/23 documented as of this encounter
--- OUTSIDE RECORDS SUMMARY | 2025-04-06 17:20 | XMS_ITS | Clinical Summary ---
Author Organization [facility] Address [address] [place] [address] Phone Care Team Providers Care Slat Basket Maker Helper Machine Name Role Phone Rc Camara DO Unavailable [phone] Rc Camara DO Primary Care Provider [phone] Rc Camara DO Unavailable [phone] Rc Camara DO Unavailable [phone] Allergies Active Allergy Reactions Criticality Noted Date Comments Beeswax Hives 04/27/2022 Reaction Type from PowerChart: Allergy; [place] Hives 07/06/2022 Reaction Type from PowerChart: Allergy; Grass Pollen 10/02/2022 House Dust Mite 10/02/2022 Other Hives 08/09/2018 Head and shoulder shampoo Pollen Extracts 04/27/2022 Reaction Type from PowerChart: Allergy; Pyrithione 01/09/2022 Pyrithione Zinc Hives 04/27/2022 Reaction Type from PowerChart: Allergy; Medications aspirin 325 mg tablet Take 1 tablet by mouth 1 time each day. 3 Active cetirizine 10 mg capsule Take 1 capsule by mouth 1 time each day. 3 Active fluticasone (Flonase Allergy Relief) 50 mcg/spray nasal spray Administer 2 sprays into affected nostril(s) 1 time each day. 3 Active montelukast (Singulair) 10 mg tablet Take 10 mg by mouth. 3 Active norethindrone-e. estradioL-iron (Junel FE 06/15, ,) 1 mg-20 mcg (21)/75 mg (7) tablet Take by mouth 1 time each day. 2 Active ondansetron (Zofran) 4 mg tablet Take 1 tablet by mouth every 8 hours if needed. 3 Active SUMAtriptan (Imitrex) 25 mg tabletIndication s:Migraine without aura and without status migrainosus, not intractable Take 25 mg total = 1 tablet by mouth 1 time if needed (severe headache). May repeat dose once in 2 hours if no relief. Do not exceed 2 doses in 24 hours. 9 tablet 2 4 Active amphetamine-dext roamphetamine XR 20 mg 24 hr capsuleIndicatio ns:Brain fog Take 20 mg = 1 capsule by mouth every morning. Do not crush, chew. The patient may request a lesser amount be dispensed than what was prescribed. 90 capsule 5 Active amphetamine-dext roamphetamine 10 mg tabletIndication s:Brain fog Take 10 mg = 1 tablet by mouth 1 time each day. The patient may request a lesser amount be dispensed than what was prescribed. 90 tablet 5 Active propranolol 40 mg tabletIndication s:Migraine without aura and without status migrainosus, not intractable Take 40 mg = 1 tablet by mouth 1 time each day. 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 Followed by both Neuro and Sleep Medicine, both at [facility]. Both involved in care. Followed [...] pm (given as late as 4pm) 05/2023. 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 COVID infection was 09/2021. Recommendations: Neuroimmunology, neurology, pulmonary, sleep medicine, OT and PT referrals. Already seeing ENT. Healthy Lifestyle habits were disussed. Seen by Conductor Pullman on 07/06/2022: normal PFT's, exhaled nitric oxide, CXR reportedly normal. Recommended Repeat allergy testing with chro. Continue Flonase, start Cetirizine and nasal saline. Albuterol prn-unhelpful per patient. Consider a controller medication. Followed by Neurologist since 08/21/2022, last seen 04/23/2023. For headaches: [id number] QHS: no effect. Increased to 20mg. Abortive [...] in the day, no later than 4pm. Last Assessment & Plan: S/P evaluation by Michael MAYORGA. Seen by Neurologist: managing headaches with Migrelief (but only just started it), will f/u. Seen by Conductor Pullman: CXR/PFT's all normal. Albuterol not helpful. Will [...] thout status migrainosus, not intractable 04/10/2022 Overview (12/10/2023): Rizatriptan PRN started Mar 2022 Followed by Neurologist since 08/21/2022 for Long Covid. Last seen 04/2023. Current treatments: Migrelief Headache hygiene CBT-ongoing Limited ibuprofen/Tylenol Sumatriptan 20mg IN prn, may repeat in 2 hours if no effect Amitriptyline 10mg- no effect, increased to 20mg QHS. Past treatments: PT-unhelpful T&A after PSG showed JOHN Stimulant use for fatigue/hypersomnia Last Assessment & Plan: Followed by [facility] Neurologist, last seen 07/2022. Has f/u planned. Migrelief started 10/2022. Rizatriptan prescribed 03/2022. 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 F/U as needed Seen by Sports Medicine at [facility] on 05/14/2022 for left patella instability with multiple subluxations/dislocations. Plan is for MRI to assess for articular artilage damage or internal derrangement. Seen by Sports Medicine at [facility] on 06/13/2022 for f/u of left knee instability. MRI shows lateral posturing of patella but no cartilage injury. MPFL reconstruction was recommended if surgery was desired. For now, continue PT and brace. F/U in 8 weeks. 05/10/2023: MPFL reconstruction was performed. Seen for post op check 05/22/2023: doing well, advance as per protocol. Last Assessment & Plan: Followed by [facility] Sports Medicine. Surgery planned in the future. Patellofemoral disorder of left knee 06/18/2021 Overview (12/10/2023): Followed by [facility] Sports Medicine. 05/10/2023: open MPFL reconstruction was done. Participates in PT. Last seen 08/12/2023: 3 month f/u after left knee arthroscopsy/open MPFL reconstruction for chronic patellar instability. Patellofemoral pain with walking down stairs can be normal at this stage. Plan: Continue PT until discharged by their team. F.U in 3 months. Immunizations Immunization Administration Dates Next Due Influenza, Unspecified 12/28/2021,05/09/2020 Meningococcal ACWY, unspecified 05/09/2020 Meningococcal B, Unspecified 11/08/2021 Pfizer Purple Cap SARS-CoV-2 05/18/2021,10/09/19 21,09/17/2020 Pfizer SARS-CoV-2 Bivalent 30 mcg/0.3 mL 022 Social History Tobacco Use Types Packs/Day Years Used Date Smoking Tobacco: Never Assessed Comments Unknown Sex and Gender Information Value Date Recorded Sex Assigned at Not on file Legal Sex Female 5:34 AM EDT Gender Identity Not on file Sexual Orientation Not on file Last Filed Vital Signs Vital Sign Reading Time Taken Comments Blood Pressure 148/75 12/10/2023 12:47 PM EDT Pulse 91 05/10/2023 3:40 PM EST Temperature 36.6 C (97.9 F) 2023 10:45 AM EDT Respiratory Rate 14 05/10/2023 3:40 PM EST Oxygen Saturation 98% 05/10/2023 3:40 PM EST Inhaled Oxygen Concentration - - Weight 93.4 kg (205 lb 14.6 oz) 024 12:47 PM EDT Height 159.7 cm (5' 2.87 ) 12/10/2023 1 2:47 PM EDT Body Mass Index 36.62 12/10/2023 12:47 PM EDT Plan of Treatment Health Maintenance Due Date Last Done Comments Chlamydia and Gonorrhea Screening 2003 HIV Screening 2003 Anemia Screening 2015 Hepatitis C Screening 11/17/2021 Meningococcal B Vaccine (2 of 2 - Trumenba SCDM 2-dose series) 05/11/2023 11/09/2022, 11/08/2021 Influenza Vaccine (#1) 2025 , 12/28/2021, 05/09/2020, Additional history exists DTaP/Tdap/Td Vaccines (7 - Td or Tdap) 05/03/2025 05/03/2015, 01/21/2009, 03/20/2005, Additional history exists Pneumococcal Vaccine: Pediatrics (0 to 5 Years) and At-Risk Patients (6 to 49 Years) Aged Out 12/13/2004, 05/22/2004, 03/21/2004, Additional history [...] 02/14/2017, 06/13/2016 Meningococcal Vaccine Completed 05/09/2020, 015 Hepatitis B Vaccines Completed 09/12/2023, 08/12/2023, 08/22/2004, Additional history exists Rotavirus Vaccines Aged Out No longer eligible based on patient's age to complete this topic Medical Devices Implanted Type Area Nutritionist Public Health Device Identifier Shelf Expiration Date Model / Serial / Lot S&N Suture [place] Q-Fix 1.8mm Implanted:Qty: 2 on 05/10/2023 by Erwin Lyons MD [place] Left: Knee [employer] 12/25/2025 [id number] / [id number] / [id number] S&N Biosure Pk Interference Screw 6x25mm Implanted:Qty: 1 on 05/10/2023 by Erwin Lyons MD Screw Left: Knee [employer] 05/30/2027 / / [id number] Graft Bn > [id number] Tendon Gracilis Hamstring Frozen Implanted:Qty: 1 on 05/10/2023 by Erwin Lyons MD Tendon Left: Knee Day Zero [email or web address] 01/17/2028 [employer] / [id number] / [id number] Insurance Remind - [facility] [place] [address] [place] Care Teams Slat Basket Maker Helper Machine Relationship Specialty Start Date End Date Rc Camara DO [address] [place] [phone] PCP - Insurance Identified PCP 10/14/23 Rc Camara DO [address] [place] [phone] PCP - General 08/06/23 Rc Camara DO [address] [place] [phone] PCP - Insurance PCP 07/13/23 Rc Camara DO [address] [place] [phone] PCP - Clinical PCP 08/06/23
--- OUTSIDE RECORDS SUMMARY | 2025-04-06 17:20 | XMS_ITS | Encounter Summary ---
Author Organization [facility] Address [address] [place] [address] Phone Care Team Providers Care Heddler Tier Name Role Phone Liz Menchaca MD Primary Care Provider [phone] Reason for Visit * Reason Comments Med Refill Encounter Details Date Type Department Care Team ([facility] st Contact Info) Description 01/09/2022 Refill Pediatric And Adolescent Medicine - [place] [address] [place] [id number] Liz Menchaca MD [address] [place] [address] Menstrual cramps Social History Tobacco Use Types [...] Telephone Encounter - Sheela Hahn RN - 01/19/2022 10:08 AM EDT You 4 weeks ago PP Spoke with Jackie to see if she was requesting the refill of Naproxen. It was prescribed 11/08/21- 60 tabs for menstrual cramps. ?? She has only used 2-3 pills. She does not need the refill yet. Advised that she call us when she does need the refill. ?? Denied refill to pharmacy at this time. Per prior conversation 12/01/21 she would contact us if a refill is needed. Again denying the refill to pharmacy. documented in this encounter Plan of Treatment Not on file documented as of this encounter Visit Diagnoses Diagnosis Menstrual cramps Dysmenorrhea documented in this encounter Care Teams Heddler Tier Relationship Specialty Start Date End Date Liz Menchaca MD [address] [place] [address] PCP - General 10/02/17 11/04/23 documented as of this encounter
--- OUTSIDE RECORDS SUMMARY | 2025-04-06 17:20 | XMS_ITS | Encounter Summary ---
Author Organization [facility] Address [address] [place], [place] [address] [place] [address] Phone Care Team Providers Care Service Center Appraiser Name Role Phone Liz Menchaca MD Primary Care Provider Encounter Details Date Type Department Care Team (Late st Contact Info) Description 05/14/[address], [facility] - [place] [address] [facility], [address] [place] [address] Social History Tobacco Use Types Packs/Day Years [...] on filedocumented in this encounter Care Teams Service Center Appraiser Relationship Specialty Start Date End Date Liz Menchaca MD [address] [place] [id number] PCP - General 03/14/22 documented as of this encounter Additional Source Comments The information contained in this document represents components of the legal health record. It is not the complete legal health record.[facility]
--- OUTSIDE RECORDS SUMMARY | 2025-04-06 17:20 | XMS_ITS | Encounter Summary ---
Author Organization [facility] Address [address] [place] [address] Phone Care Team Providers Care Voltage Tester Name Role Phone Rc Camara DO Unavailable [phone] Rc Camara DO Primary Care Provider [phone] Rc Camara DO Unavailable Rc Camara DO Unavailable [phone] Reason for Visit * Reason Onset Date Comments Med Refill 01/24/2024 Encounter Details Date Type Department Care Team (Late st Contact Info) Description 01/24/2024 Refill [facility] [address] [place] [phone] Toya Oviedo DO [address] [place] [address] Brain fog Social History Tobacco Use Types Packs/Day Years Used Date Smoking Tobacco: Never Assessed Comments Unknown Sex and Gender Information Value Date Recorded Sex Assigned at Not on file Legal Sex Female 5:34 AM EDT Gender Identity Not on file Sexual Orientation Not on file documented as of this encounter Plan of Treatment Not on file documented as of this encounter Visit Diagnoses Diagnosis Brain fog documented in this encounter Care Teams Voltage Tester Relationship Specialty Start Date End Date Rc Camara DO [address] [place] [phone] PCP - Insurance Identified PCP 10/14/23 Rc Camara DO [address] [place] [phone] PCP - General 08/06/23 Rc Camara DO [address] [place] [phone] PCP - Insurance PCP 07/13/23 Rc Camara DO [address] [place] [phone] PCP - Clinical PCP 08/06/23 documented as of this encounter
--- OUTSIDE RECORDS SUMMARY | 2025-04-06 17:20 | XMS_ITS | Patient Health Record ---
Author Organization [facility] Address [address] [place] [address] Care Team Providers Care Event Decorator Name Role Phone Liz Menchaca Primary Care Provider Unavaila david Black, Radha Unavailable [phone] Allergies Allergen (clinical drug ingredient) Drug/Non Drug Allergy documented on EMR Reaction Allergy Type Onset Date Status Seasonale Unknown Drug Allergy Active Reason For Referral No Information Medications Medication SIG (Take, Route, Frequency, Duration) Notes Start Date End Date Status School Note . . . .; Duration: . 06/26/2013 Not-Taking Custom Orthotics as directed 12/24/2017 Active Keflex 500 MG 1 capsule Orally gela ry 12 hrs; Duration: 10 day(s) 09/30/2017 Not-Taking iron Active Augmentin Not-Taking Amoxicillin-Pot Clavulanate Not-Taking Social History Tobacco Use: Social History Observation Description Date Details (start date - stop date) Never Smoker NA - NA Tobacco Use/Smoking Question Answer Notes Are you a: nonsmoker Additional Findings: Tobacco Non-User Current no n-smoker Alcohol Screen Question Answer Notes Did you have a drink containing alcohol in the p ast year? No Points 0 Interpretation Negative Tobacco use other than smoking: Question Answer Notes Are you an other tobacco user? 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 Plan Of Treatment Pending Test Test Name Order Date [id number] 05/29/2013 [id number] 02/16/2014 [id number] 09/30/2017 20465- Debride <25 sq cm 10/15/2017 [id number]- Debride <25 sq cm 06/26/2013 [id number]- Debride <25 sq cm 03/16/2014 [id number] SKIN/TISSUE 06/11/2013 [id number] SKIN/TISSUE 03/02/2014 16605 I&D ABSCESS- SIMPLE,SINGLE 013 Insurance Providers Payer Name Payer Address Payer Phone Subscriber Number Group Number Insured Name Patient Relationship to Insured Coverage Start Date Coverage End Date [facility] [address] [place] [phone] [id number] Johnnie Goodman Child - Insured has Financial Responsibility Medical (General) History Medical History History ICD Code Anemia Anxiety Back pain Migraines Headaches Surgical History Surgery Date(Month/Year) adenoidectomy 04/2011
== END 2025-04-06 16:44 | disposition home or self-care (01) ==
LOC: HO.ENCR 16:00
PROVIDERS: PCP Registered Nurse; Visit Provider Internal Medicine Endocrinology, Diabetes & Metabolism
DX: R63.5 Abnormal weight gain (principal)
CPT/HCPCS: 99204